=== PATIENT | female | born 1970 | race American Indian/Alaskan Native ===

== ENCOUNTER 2020-04-24 13:08 | Outpatient (CLI) | payer OTHER ==
[2020-04-24 13:51] LABS: Hematocrit 29.4 % (30.3-42.9); Hemoglobin 9.4 gm/dl (10.1-14.3); Mean Corpuscular HGB Conc 32 % (30-34); Mean Corpuscular Volume 71 fl (79-97); Platelet Count 289 K/mm3 (140-440); Red Blood Count 4.12 M/mm3 (3.65-5.03)
[2020-04-24 13:54] LABS: Red Cell Distribution Width 20.1 % (13.2-15.2)
[2020-04-24 14:16] LABS: Erythrocyte Sedimentation Rate 39 mm/Hr (0-20)
[2020-04-24 15:19] LABS: % Iron Saturation 7.27 %; Alanine Aminotransferase 12 units/L (7-56); Albumin 4.1 g/dL (3.9-5); BUN/Creatinine Ratio 15; Blood Urea Nitrogen 12 mg/dL (7-17); Hemolysis Index 22; Iron 33 ug/dL (37-170); Total Iron Binding Capacity 454 mcg/dL (250-450)
[2020-04-24 16:08] LABS: Anisocytosis 1+; Hypochromasia 1+; Total Cells Counted 100
[2020-04-29 20:37] LABS: ANA Screen, IFA Negative (Negative)
[2020-05-01 08:05] LABS: Vitamin D, 25-OH, D2 <4 ng/mL
== END 2020-04-24 13:09 | disposition home or self-care (01) ==
LOC: LAB 13:08
PROVIDERS: ATTEND Specialist
DX: G62.9 Polyneuropathy, unspecified (principal)
CPT/HCPCS: 36415; 80053; 82306; 82607; 82747; 83036; 83550; 83735; 83921; 84443; 85007; 85025; 85652; 86038; 86225; 86334; 86431; 86592